=== PATIENT | female | born 1995 | race Caucasian/White ===

== ENCOUNTER 2019-03-10 14:10 | Emergency (ER) | payer MEDICAID, SELFPAY ==
[2019-03-10 14:42] VITALS: BP 117/77; PULSE 111; RESP 16; TEMP 37; O2SAT 100
--- NOTE | 2019-03-10 15:47 | W.ED.GENAD ---
Discharge Plan Disposition Patient Disposition: HOME Condition: Good Discharge Details Chief Complaint: EyeProblem Clinical Impression: Conjunctivitis, Congestion of nasal sinus Primary Care Provider: Agus Hylton ED Provider: Vinny Berg Home Meds and New Rx's Prescriptions: New loratadine 10 mg capsule 10 mg PO DAILY Qty: 14 RF: 0 fluticasone propionate [Flonase Allergy Relief] 50 mcg/actuation spray,suspension 1 spray MACKENZIE BID Qty: 9.9 RF: 0 oxymetazoline [Afrin (oxymetazoline)] 0.05 % spray,non-aerosol 1 spray MACKENZIE ONCE Qty: 15 RF: 0 No Action spironolactone 50 mg tablet 100 mg PO DAILY RF: 0 prochlorperazine maleate 5 mg tablet 5 mg PO Q8H PRN (Reason: headache and nausea) Qty: 30 RF: 12 albuterol sulfate 8.5 GM HFA aerosol inhaler 2 puff Inhalation Q4H PRN Qty: 1 RF: 2 tretinoin [Retin-A] 45 GM cream 1 shannon Topical HS Qty: 45 RF: 3 fexofenadine [Juhi Allergy] 180 MG tablet 180 mg PO DAILY Qty: 30 RF: 0 Flovent HFA 10.6 GM HFA aerosol inhaler 2 puff Inhalation BID Qty: 1 RF: 0 topiramate [Topamax] 50 MG tablet 50 mg PO HS Qty: 90 RF: 3 Hold Instructions: Home Medication placed on hold at Doctor's office Nexplanon 68 MG implant 68 mg SQ ONCE Qty: 1 RF: 0 Discharge Instructions Instructions: Conjunctivitis (ED) Additional Instructions: At this time you have both conjunctivitis and mild rhinosinusitis. Please continue taking your Cipro drops as directed. If you do not notice improvement after 5 days please contact us we can call you in a different eye antibiotic. However I suspect that the Cipro will take care of the problem well. Please take the loratadine every day to help with the congestion, please use the Flonase spray 1 spray in each nostril twice daily. Please use the Afrin only as needed. Please drink 10 to 12 cups of water per day. If you notice any worsening of your symptoms, or any new symptoms such as vomiting, diarrhea, fever, chills, shortness of breath, chest pain, numbness, weakness, or fainting , please return immediately to the emergency department for reevaluation. Please follow up with your primary care provider as soon as possible for reassessment and reevaluation. As always, it was a pleasure participating in your medical care today. Referrals: Agus Hylton [Primary Care Provider] - Medical Decision Making This is a pleasant 23-year-old female who presents for evaluation of irritated eyes, nasal pressure sinus pressure, and ear pressure. 3 days ago she was started on Cipro drops for her eyes, which have been improving ever since. Ears demonstrate no evidence of infection, but she does have mild serous fluid. Minimal maxillary sinus congestion on percussion. Symptoms have been less than a week, and appear inconsistent with chronic sinusitis requiring antibiotics. At this time we will recommend steroid nasal spray, Afrin only as needed, loratadine and continuation of her Cipro drops. We discussed red flags which to return. At time of dispel auscultated heart rate on exam was 88. HPI General Date/Time Provider Initiated Documentation: 03/10/19 14:39. HPI Narrative: Is a 23-year-old female who presents today for evaluation of nasal congestion, ear pressure, and conjunctivitis-like symptoms. 3 days ago she was prescribed Cipro drops for her eye secondary to conjunctivitis in the right eye. It is now spread to the left but she states that it is improving with the drops. She is not a contact lens wear. Over the last 2 to 3 days she is also noted pressure in her ears, notable nasal congestion. She denies fever or chills. She does have a mild nonproductive cough which she feels is postnasal drip. She denies chest pain shortness of breath numbness tingling or weakness. No other complaints at this time. No other modifying factors. Of note initial heart rate was 111 however on evaluation now her heart rate is 80. Related Data Home Medications Medication Instructions Recorded Confirmed albuterol sulfate 2 puff INHALATION Q4H PRN #1 09/16/13 03/10/19 inhaler tretinoin [Retin-A] 1 shannon TOPICAL HS #45 gm 11/06/13 03/10/19 Flovent HFA 2 puff INHALATION BID #1 inhaler 08/25/14 03/10/19 fexofenadine [Juhi Allergy] 180 mg PO DAILY #30 tab-cap 08/25/14 03/10/19 topiramate [Topamax] 50 mg PO HS #90 tab-cap 04/04/17 03/10/19 etonogestrel [Nexplanon] 68 mg SQ ONCE #1 implant 09/14/17 03/10/19 prochlorperazine maleate 5 mg 5 mg PO Q8H PRN #30 tab-cap 07/23/18 03/10/19 tablet spironolactone 50 mg tablet 100 mg PO DAILY 07/23/18 03/10/19 fluticasone propionate [Flonase 1 spray MACKENZIE BID #9.9 ml 03/10/19 Allergy Relief] loratadine 10 mg PO DAILY #14 cap 03/10/19 oxymetazoline [Afrin 1 spray MACKENZIE ONCE #15 ml 03/10/19 (oxymetazoline)] Previous Rx's Medication Instructions Recorded topiramate [Topamax] 50 mg PO HS #90 tab-cap 04/04/17 prochlorperazine maleate 5 mg 5 mg PO Q8H PRN #30 tab-cap 07/23/18 tablet fluticasone propionate [Flonase 1 spray MACKENZIE BID #9.9 ml 03/10/19 Allergy Relief] loratadine 10 mg PO DAILY #14 cap 03/10/19 oxymetazoline [Afrin 1 spray MACKENZIE ONCE #15 ml 03/10/19 (oxymetazoline)] Allergies Allergy/AdvReac Type Severity Reaction Status Date / Time azithromycin [From Zithromax] Allergy Intermediate HIVES Unverified 03/10/19 14:48 General Stated Complaint: EyeProblem ROULA: 4 Review of Systems All systems reviewed & are unremarkable except as noted in HPI and below PFSH Social History Smoking/Tobacco Use Status: Never Alcohol Intake: current Alcohol Intake frequency: a few times a month Drug use: Never Substance use type: does not use Household members: family Education Level: college current occupation: STUDENT Do you feel safe at home: Yes Do you feel safe in your relationship?: Yes Exam Narrative Exam Narrative: 1.Const: Well-nourished, Well-developed, appearing stated age 2.Eyes: PERRL, mild conjunctival injection bilaterally. Mild clear drainage. No edema or signs of periorbital orbital cellulitis. No pain with movement of eyes. 3.ENT: Atraumatic external nose and ears. Moist MM. Neck: Symmetric, trachea midline, No thyromegaly. Minimal clear serous fluid behind the tympanic membranes bilaterally, no purulent fluid, no significant bulging, no evidence of infectious otitis media. No rupture. No tenderness on percussion of frontal sinuses. Minimal tenderness on percussion of maxillary sinuses. Nose is unremarkable on exam, posterior oropharynx is normal. Patient demonstrates good movement of cervical neck. There is no nuchal rigidity, no nuchal tenderness. Patient is able to flex the neck without any difficulty or significant pain. Negative Kernig's and Brudzinski sign. 4.CVS: +S1/S2, No murmurs or gallops. Peripheral pulses 2+ and equal in all extremities. Brisk capillary refill in all extremities. 5.RESP: Unlabored respiratory effort. Clear to auscultation bilaterally. No wheezes rales or rhonchi 6.GI: Soft, Nontender/Nondistended, No hepatosplenomegaly. No guarding or rebound. 7.MSK: Normocephalic/Atraumatic, Extremities w/o deformity or ttp No cyanosis or clubbing, Normal movement of all extremities 8.Skin: Warm, Dry. No rashes or lesions. 9.Neuro: research investigator II-XII grossly intact. Sensation grossly intact, no focal neurologic deficits. 10.Psych: (AAO) x3. Appropriate mood and affect Course Vital Signs Vital signs: Vital Signs Temperature 37.0 C 03/10/19 14:42 Pulse 111 H 03/10/19 14:42 Respiratory Rate 16 03/10/19 14:42 Blood Pressure 117/77 03/10/19 14:42 Pulse Oximetry 100 03/10/19 14:42 Temperature 37.0 C 03/10/19 14:42 Temperature Source Temporal Artery Scan 03/10/19 14:42 Pulse 111 H 03/10/19 14:42 Respiratory Rate 16 03/10/19 14:42 Respiratory Effort Non-Labored 03/10/19 14:50 Blood Pressure 117/77 03/10/19 14:42 Blood Pressure Position Sitting 03/10/19 14:42 Pulse Oximetry 100 12/23/19 14:42 Oxygen Delivery Method Room Air 03/10/19 14:42 Oxygen Flow Rate 0 03/10/19 14:42 Pain Level 8 03/10/19 14:42
== END 2019-03-10 15:57 | disposition home or self-care (01) ==
PROVIDERS: Emergency Provider Student in an Organized Health Care Education/Training Program; PCP Nurse Practitioner Family
DX: H10.33 Unspecified acute conjunctivitis, bilateral (principal); R09.81 Nasal congestion
CPT/HCPCS: 99283

== ENCOUNTER 2020-10-13 13:17 | Emergency (ER) | payer MEDICAID, SELFPAY ==
[2020-10-13 13:21] VITALS: BP 117/89; PULSE 98; RESP 16; TEMP 36.8; O2SAT 100
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
[2020-10-13 14:29] VITALS: BP 109/81; PULSE 86; TEMP 36.7; O2SAT 99
== END 2020-10-13 14:29 | disposition home or self-care (01) ==
PROVIDERS: Emergency Provider Physician Assistant; PCP Nurse Practitioner Family
DX: S00.83XA Contusion of other part of head, initial encounter (principal); W22.8XXA Striking against or struck by other objects, initial encounter
CPT/HCPCS: 99282

== ENCOUNTER 2021-03-07 15:29 | Outpatient (REF) | payer MEDICAID, SELFPAY | END 2021-03-07 15:30 | disposition home or self-care (01) | LOC: NCHCN 15:29 | PROVIDERS: PCP Nurse Practitioner Family; Visit Provider Nurse Practitioner Family | DX: R30.0 Dysuria (principal) | CPT/HCPCS: 87077; 87086; 87186 ==

== ENCOUNTER 2023-11-30 01:15 | Outpatient (CLI) | payer BC, SELFPAY ==
[2023-11-30 10:16] LABS: Abs Immature Grans 0.04 10^3/uL (0.0-0.06); Absolute Basophil Count 0.03 10^3/uL (0.0-0.2); Absolute Eosinophil Count 0.18 10^3/uL (0.0-0.7); Absolute Lymphocyte Count 1.67 10^3/uL (1.2-3.4); Absolute Monocyte Count 0.43 10^3/uL (0.1-0.8); Absolute Neutrophil Count 6.35 10^3/uL (1.2-6.7); Basophils % 0.3 %; Eosinophils % 2.1 %; HCT 42.2 % (36.0-46.0); HGB 14.2 g/dL (11.2-15.7); Immature Grans % 0.5 %; Lymphocytes % 19.2 %; MCH 29.7 pg (27.0-33.0); MCHC 33.6 % (32.0-36.0); MCV 88 fL (80-95); MPV 9.6 fL (8.0-11.0); Monocytes % 4.9 %; Platelet Count 219 10^3/uL (130-400); RBC 4.78 10^6/uL (3.93-5.22); RDW 12.6 % (11.7-14.6); RDW-SD 41.1 fL
[2023-11-30 10:18] LABS: Panorama Kit Sent via Fed Ex
[2023-12-01 10:54] LABS: HIV-1/2 Ag & Ab Screen Negative (Negative)
[2023-12-03 09:59] LABS: Hepatitis B Surface Ag Negative (Negative)
[2023-12-03 10:14] LABS: Hepatitis C Ab w Rflx HCV PCR Negative (Negative)
[2023-12-03 11:39] LABS: Varicella IgG Antibody Positive (See Note)
[2023-12-03 11:44] LABS: Rubella IgG Ab (UVM) Positive (See Note)
[2023-12-03 21:28] LABS: Specimen WB Whole Blood
[2023-12-03 22:31] LABS: Syphilis IgG w/Reflex Nonreactive (Nonreactive)
[2023-12-11 18:27] LABS: Result Summary NEGATIVE; Specimen WB Whole Blood
== END 2023-11-30 01:16 | disposition home or self-care (01) ==
LOC: LBO 01:15
PROVIDERS: PCP Nurse Practitioner Family; Visit Provider Advanced Practice Midwife
DX: Z34.91 Encounter for supervision of normal pregnancy, unspecified, first trimester (principal); Z3A.10 10 weeks gestation of pregnancy
CPT/HCPCS: 36415; 81220; 81222; 81329; 86787; 86803; 86850; 86900; 86901; 87340; 87389; 85025; 86762; 86780

== ENCOUNTER 2023-11-30 09:34 | Outpatient (REF) | payer BC, SELFPAY ==
--- NOTE | 2023-11-30 09:30 | PAPFT_PTH ---
PATIENT: Drew Lincoln LOC: [facility] U#:[id number] AGE/SX: 28/F ROOM: RE11/30/[address]: Savita Givens : 1995 BED: DIS: 11/30/2023 SPEC #: [id number] RECD: 11/30/23 12:36 STATUS: VINH RERiky #: [id number] BRYCE: 11/30/23 09:[address]: Savita Givens DEPT: [facility] Cytology RECD BY: Cindy Best ENTERED: 11/30/23 12:36 SP TYPE: PAPFT LAURIE DR: Callum Shelton DNP Tissues: 1 - CX/ENDOCX FOR PAP SMEARS Procedures: PAP THIN PREP/UVM Screening Comments: [id number]
[2023-12-03 12:42] LABS: Chlamydia Result Negative (Negative); GC Result Negative (Negative)
== END 2023-11-30 09:35 | disposition home or self-care (01) ==
LOC: LBN 09:34
PROVIDERS: PCP Nurse Practitioner Family; Visit Provider Advanced Practice Midwife
DX: Z3A.01 Less than 8 weeks gestation of pregnancy (principal); Z34.01 Encounter for supervision of normal first pregnancy, first trimester; Z36.9 Encounter for antenatal screening, unspecified
CPT/HCPCS: 87491; 87591; 88142; 87086

== ENCOUNTER 2024-03-26 04:17 | Outpatient (CLI) | payer MEDICAID, SELFPAY ==
[2024-03-26 08:21] LABS: HGB 12.7 g/dL (11.2-15.7); MCH 29.9 pg (27.0-33.0); MCHC 33.4 % (32.0-36.0); MCV 89 fL (80-95); MPV 9.3 fL (8.0-11.0); Platelet Count 175 10^3/uL (130-400); RBC 4.25 10^6/uL (3.93-5.22); RDW 12.6 % (11.7-14.6); RDW-SD 41.1 fL
[2024-03-26 08:38] LABS: Glucose,1 Hr (Glucola) 147 mg/dL (80-140)
== END 2024-03-26 04:18 | disposition home or self-care (01) ==
PROVIDERS: PCP Nurse Practitioner Family; Visit Provider Advanced Practice Midwife
DX: O26.892 Other specified pregnancy related conditions, second trimester (principal); Z67.91 Unspecified blood type, Rh negative; Z34.92 Encounter for supervision of normal pregnancy, unspecified, second trimester
CPT/HCPCS: 36415; 82950; 85027; 86850; 90384

== ENCOUNTER 2024-04-03 01:08 | Outpatient (CLI) | payer MEDICAID, SELFPAY ==
[2024-04-03 09:22] LABS: Glucose 1 Hour 148 mg/dL
[2024-04-03 11:23] LABS: Glucose 3 Hour 106 mg/dL
== END 2024-04-03 01:09 | disposition home or self-care (01) ==
LOC: LBO 01:08
PROVIDERS: Advanced Practice Midwife; PCP Nurse Practitioner Family; Visit Provider Advanced Practice Midwife
DX: R73.09 Other abnormal glucose (principal)
CPT/HCPCS: 36415; 82951

== ENCOUNTER 2024-04-08 01:43 | Outpatient (CLI) | payer MEDICAID, SELFPAY ==
--- NOTE | 2024-04-08 06:30 | DI.US_ITS ---
Exam(s) US LOWER EXTREMITY VENOUS RT EXAM: US LOWER EXTREMITY VENOUS RT CLINICAL HISTORY: Varicose Vein right leg, hot to touch,? DVT,i83.10 TECHNIQUE: Grayscale, color, and doppler imaging of the deep venous system of the right lower extrem ity was performed. COMPARISON: US US OB 2-3 TRIMESTER from 01/29/2024 FINDINGS: There is no evidence of intraluminal thrombus and there is normal compression and augmentation demons trated within the common femoral vein, femoral vein, and popliteal vein. In the ipsilateral calf the interrogated veins also exhibit normal compression/ augmentation properti es. The ipsilateral saphenofemoral junction is patent. IMPRESSION: 1. No evidence of DVT in the right lower extremity. DATA REPOSITORY:
== END 2024-04-08 02:03 ==
LOC: DI 01:43
PROVIDERS: PCP Nurse Practitioner Family; Visit Provider Advanced Practice Midwife
DX: I83.11 Varicose veins of right lower extremity with inflammation (principal)
CPT/HCPCS: 93971

== ENCOUNTER 2024-05-23 11:18 | Outpatient (CLI) | payer MEDICAID, SELFPAY ==
[2024-05-23 11:55] VITALS: BP 130/92; PULSE 78; TEMP 36.5
[2024-05-23 12:56] LABS: HCT 39.4 % (36.0-46.0); HGB 13.1 g/dL (11.2-15.7); MCH 29.6 pg (27.0-33.0); MCHC 33.2 % (32.0-36.0); MCV 89 fL (80-95); MPV 9.8 fL (8.0-11.0); Platelet Count 158 10^3/uL (130-400); RBC 4.42 10^6/uL (3.93-5.22); RDW 13.2 % (11.7-14.6); RDW-SD 43.3 fL; WBC 9.24 10^3/uL (4.4-10.8)
[2024-05-23 13:04] LABS: COMMENT (LAB VIEW ONLY) 14.08 mg/dL; PROTEIN < 6.0 mg/dL
[2024-05-23 13:10] LABS: ALT 24 U/L (14-59); AST 15 U/L (15-37); Albumin 2.5 g/dL (3.4-5.0); Alkaline Phosphatase 233 U/L (46-116); Anion Gap 11.7 mmol/L (3-11); BUN 8 mg/dL (7-18); Bilirubin, Total 1.2 mg/dL (0.2-1.0); CO2 22.3 mmol/L (21.0-32.0); CREATININE 0.5 mg/dL (0.55-1.02); Calcium 9.2 mg/dL (8.5-10.1); Chloride 107 mmol/L (98-107); Estimated GFR 131.75 (mL/min/1.73m2); Glucose 74 mg/dL (74-106); Potassium 3.8 mmol/L (3.5-5.1); Sodium 141 mmol/L (136-145); Total Protein 6.3 g/dL (6.4-8.2); Uric Acid 4.5 mg/dL (2.6-6.0)
--- NOTE | 2024-05-23 15:08 | W.OBNST ---
Date of service: 05/23/24 Time of Service: 15:08 NST Evaluation Reason for NST Reasons for Nonstress Test: GESTATIONAL HYPERTENSION Gestational Age Gestational Age in Weeks and Days: 35 Weeks and 5Days Test and Monitor Explained Test/Monitor Explained: Test Explained, Monitor Explained and Patient Verbalized Understanding Vital Signs Blood Pressure: 130/92 Pulse: 78 Temperature: 97.7 F NST Information Time on Monitor: 11:55 Date off Monitor: 05/23/24 Time off Monitor: 12:24 NST Interventions: PO Hydration NST Evaluation Patient States Movement: Present FHR Baseline: 130 Variability: Moderate 6-25 bpm Accelerations: 15x15 Decelerations: None NST Results: Reactive Note Ultrasound Done: N/A. NST Note Note: Drew experienced an ocular migraine while at work today at her [employer]. Her symptoms resolved with tylenol. She experienced some numbness in left hand and fingers which lasted approximately 30 minutes. Repeat BP was 130/77. No edema or headache at encounter. preeclampsia labs WNL and urine protein neg. RTO in 5 days. Precautions reviewed. NST Reviewed and Verified by: Savita Givens
[2024-05-23 15:09] VITALS: BP 130/92; PULSE 78; TEMP 36.5
== END 2024-05-23 12:47 | disposition other institution (70) ==
LOC: BCD 11:23 → OBS 11:54
PROVIDERS: PCP Nurse Practitioner Family; Visit Provider Advanced Practice Midwife
DX: O16.3 Unspecified maternal hypertension, third trimester (principal); Z3A.35 35 weeks gestation of pregnancy
CPT/HCPCS: 59025; 36415; 80053; 85027; 82565; 84156; 84550

== ENCOUNTER 2024-05-27 16:30 | Outpatient (REF) | payer MEDICAID, SELFPAY | END 2024-05-27 16:31 | disposition home or self-care (01) | LOC: LBN 16:30 | PROVIDERS: PCP Nurse Practitioner Family; Visit Provider Advanced Practice Midwife | DX: Z34.93 Encounter for supervision of normal pregnancy, unspecified, third trimester (principal); Z3A.36 36 weeks gestation of pregnancy | CPT/HCPCS: 87081 ==

== ENCOUNTER 2024-06-12 15:56 | Outpatient (CLI) | payer MEDICAID, SELFPAY ==
[2024-06-12 16:04] VITALS: BP 128/86; PULSE 89
[2024-06-12 16:10] VITALS: BP 128/86; PULSE 89; TEMP 36.8
[2024-06-12 16:38] VITALS: BP 119/87; PULSE 96
[2024-06-12 16:41] LABS: HCT 40.4 % (36.0-46.0); HGB 13.4 g/dL (11.2-15.7); MCH 29.5 pg (27.0-33.0); MCHC 33.2 % (32.0-36.0); MCV 89 fL (80-95); MPV 10.3 fL (8.0-11.0); Platelet Count 166 10^3/uL (130-400); RBC 4.55 10^6/uL (3.93-5.22); RDW 13.6 % (11.7-14.6); RDW-SD 43.8 fL; WBC 9.57 10^3/uL (4.4-10.8)
[2024-06-12 16:43] VITALS: BP 128/86; PULSE 88
[2024-06-12 16:57] LABS: COMMENT (LAB VIEW ONLY) 150.11 mg/dL; PROTEIN 33.6 mg/dL; Prot/Crea Ur Ratio 0.22
--- NOTE | 2024-06-12 17:02 | W.OBNST ---
Date of service: 06/12/24 Time of Service: 17:02 NST Evaluation Reason for NST Reasons for Nonstress Test: OTHER, SEE COMMENT Reason for NST Other: Elevated BP in office Gestational Age Gestational Age in Weeks and Days: 38 Weeks and 4Days Test and Monitor Explained Test/Monitor Explained: Test Explained, Monitor Explained and Patient Verbalized Understanding Vital Signs Blood Pressure: 128/86 Pulse: 89 Temperature: 98.2 F Urine Results Urine Protein: Positive Urine Ketones: Negative Urine Glucose: Negative Urine Blood: Negative NST Information Time on Monitor: 15:57 Date off Monitor: 06/12/24 Time off Monitor: 16:47 NST Interventions: PO Hydration and Notify Provider Contraction Frequency: Irregular NST Evaluation Patient States Movement: Present FHR Baseline: 145 Variability: Moderate 6-25 bpm Accelerations: 15x15 Decelerations: None NST Results: Reactive Note Ultrasound Done: CHRISTAL (gestational HTN) Indication: Other Largest Vertical Pocket: 7 Total CHRISTAL: 19.4 Coding for CHRISTAL w/NST: Completed Exam. NST Note Note: Shay is a at 38w4d who presents for an NST and BP monitoring after an elevated BP in clinic today (143/95). She had one other elevated BP in on 05/23/24 when BP was 130/90, normal labs and undetectable P:C. Today her P:C is 0.22, CHRISTAL is normal at 19.4cm and CBC is normal. CMP is WNL. Discussed diagnosis of gestational hypertension with recommendation for IOL today. Patient requets discharge to home and to return at 0700 for IOL. Reviewed risks of maternal and complications with increase in risk due to worsening of gestational hypertension to preeclampsia or eclampsia. Reviewed warning signs and symptoms to report to staff. After risk benefits discussion with patient and partner Dez patient verbalizes understanding and desire to discharge home to return in the morning. MD aware of plan. NST Reviewed and Verified by: Latha Pandey [employer] OB Exam DATE OF EXAM:: 06/12/24 TIME OF EXAM:: 17:03 PROVIDER THAT PERFORMED THE STUDY: Latha Pandey IS THIS A REPEAT EXAM DURING THIS ENCOUNTER: No Type of Exam: Pelvic OB Trans Abdominal REASON FOR EXAM: other indication: CHRISTAL Exam Complete. DIFFERENTAL DIAGNOSES: oligohydramnios. CHRISTAL 19.4cm, vertex BRUNILDA
[2024-06-12 17:03] VITALS: BP 128/86; PULSE 89; TEMP 36.8
[2024-06-12 17:05] LABS: ALT 24 U/L (14-59); AST 15 U/L (15-37); Albumin 2.4 g/dL (3.4-5.0); Alkaline Phosphatase 256 U/L (46-116); Anion Gap 9.8 mmol/L (3-11); BUN 8 mg/dL (7-18); CO2 23.2 mmol/L (21.0-32.0); CREATININE 0.6 mg/dL (0.55-1.02); Calcium 8.6 mg/dL (8.5-10.1); Chloride 106 mmol/L (98-107); Estimated GFR 126.09 (mL/min/1.73m2); Glucose 120 mg/dL (74-106); Potassium 3.8 mmol/L (3.5-5.1); Sodium 139 mmol/L (136-145); Total Protein 6.2 g/dL (6.4-8.2)
== END 2024-06-12 18:41 ==
LOC: BCD 16:01 → OBS 16:03
PROVIDERS: PCP Nurse Practitioner Family; Visit Provider Advanced Practice Midwife
DX: R03.0 Elevated blood-pressure reading, without diagnosis of hypertension (principal); O26.893 Other specified pregnancy related conditions, third trimester; Z3A.38 38 weeks gestation of pregnancy
CPT/HCPCS: 36415; 80053; 85027; 59025; 82565; 84156

== ENCOUNTER 2024-06-13 07:36 | Inpatient (IN) | payer MEDICAID, SELFPAY ==
[2024-06-13] VITALS (20 sets, daily range): BP systolic 116–140; BP diastolic 78–91; PULSE 80–115; RESP 16; TEMP 36.4–36.6; O2SAT 98
[2024-06-13] MEDS: miSOPROStol 25 MCG TAB 50 MCG PO ×3 (09:10→17:15)
[2024-06-13 09:54] LABS: HGB 13.3 g/dL (11.2-15.7); MCH 29.6 pg (27.0-33.0); MCHC 33.3 % (32.0-36.0); MCV 89 fL (80-95); MPV 10.3 fL (8.0-11.0); Platelet Count 154 10^3/uL (130-400); RDW 13.7 % (11.7-14.6); RDW-SD 44.1 fL; WBC 9.98 10^3/uL (4.4-10.8)
--- NOTE | 2024-06-13 09:56 | W.OBNST ---
Date of service: 06/13/24 Time of Service: 09:56 NST Evaluation Reason for NST Reasons for Nonstress Test: GESTATIONAL HYPERTENSION Reason for NST Other: Induction of Labor Gestational Age Gestational Age in Weeks and Days: 38 Weeks and 5Days Test and Monitor Explained Test/Monitor Explained: Test Explained, Monitor Explained and Patient Verbalized Understanding Vital Signs Blood Pressure: 127/91 Pulse: 107 Temperature: 97.5 F Urine Results Urine Protein: Positive Urine Ketones: Negative Urine Glucose: Negative Urine Blood: Negative NST Information Date on Monitor: 06/13/24 Time on Monitor: 07:41 Date off Monitor: 06/13/24 Time off Monitor: 08:12 Total Time on Monitor: 31 NST Interventions: PO Hydration Contraction Frequency: Irregular NST Evaluation Patient States Movement: Present FHR Baseline: 145 Variability: Moderate 6-25 bpm Accelerations: 15x15 Decelerations: None NST Results: Reactive Note Ultrasound Done: N/A. NST Note Note: Drew is here for IOL due to gestational hypertension. Reviewed cervical ripening methods and will prceed with ripening with misoprostol. NST Reviewed and Verified by: Savita Givens
--- NOTE | 2024-06-13 09:57 | W.PM.OBHPL1 ---
Date of service: 06/13/24 Time of Service: 09:57 Assessment and Plan Assessment and plan (1) Encounter for induction of labor: Status: Acute Assessment and plan: Reviewed cervical ripening methods and will proceed with ripening with oral misoprostol. Kapil consider cervical ripening balloon when cervix is more favorable. Anticipate . Comfort measures discussed. (2) Gestational hypertension: Status: Acute Assessment and plan: Review of BP prior to indicates diagnosis of stage 1 hypertension. Recommendation as well as risks and benefits of induction explained to Drew and she wishes to proceed with induction of labor today. OB-HPI Labor/Delivery History of Present Illness Reason for Visit: Induction of Labor Chief Complaint: Scheduled Induction of Labor Indication for Induction: Gestational Hypertension. PATRICIA Calculator Estimated Delivery Date Method Current WG Current Estimate 06/22/24 LMP (Certain) 38w 5d Other Estimates 06/19/24 Ultrasound #1 39w 1d Comments: Drew had an elevated BP at the office yesterday. Preeclampsia labs WNL. Risks and benefits of induction of labor were explained to Drew yesterday and She and her partner, Dez agree to IOL today. History of Present Expected Delivery Route/Plan - CNM FOB/claudia - Dez Donna (has 2 children ages 8 & 10, healthy) Waiting for to learn gender, if male will circ No set plan, would like to avoid epidural GBS negative Specific Issues/Plan 1. Migraine with aura- magnesium recommended daily 2. Constipation- colace escribed PRN BID 3. History of anxiety and depression-Vitamin D suggested daily 4. Rh neg, RhoGam @ 28 wks 03/26/24 5. cfDNA; low risk x5, gender not reported. neg, SMA - neg 6. Takes amytriptiline 10 mg hs for Interstitial cystitis and UTI prevention 7. 27 wk [id number], 3 hr GTT -81, 148, 126, 106 8. Phlebitis R lower varicose vein (right calf), US 04/07 is negative for DVT PFSH All Active Problems (Updated 06/13/24 @ 10:00 by Savita Givens CNM) Gestational hypertension (Acute) Encounter for induction of labor (Acute) (Acute) Varicose veins during , antepartum (Acute) right upper inner calf Rh negative status during (Acute) Depression (Chronic) Anxiety (Chronic) Asthma (Chronic) Rosacea (Acute) Interstitial cystitis (Acute) Seasonal allergies (Acute) Migraine with aura (Acute 08/25/14) Eczema (Acute 11/06/12) Facial contusion (Acute) Head injury (Acute) Medical History (Updated 06/13/24 @ 10:00 by Savita Givens CNM) Elevated glucose Varicose vein of lower extremity with phlebitis History of frequent urinary tract infections Chronic idiopathic urticaria (12/24/13) Encounter for removal and reinsertion of Nexplanon BCP ( control pills) initiation Recurrent tonsillitis (12/11/13) Irregular periods (09/28/11) Hx of tonsillitis Acne (11/07/11) Head injury Migraine has neuro eval 09/2014 Multiple allergies sees asphalt coater. Surgical History Tonsillectomy (02/09/14) Myringotomy w/ PE (pressure equalizing) tubes Family History (Updated 11/30/23 @ 08:47 by Savita Givens CNM) Mother Hypertensive disorder, systemic arterial off meds now Migraines Hypertension Sister Migraines Father Alcohol use disorder Maternal Grandmother Personal history of malignant neoplasm skin Bipolar disorder current episode depressed Maternal Grandfather Hypertensive disorder, systemic arterial Heart disease bypass Social History (Updated 09/14/23 @ 13:00 by Anne-Marie Ball) Smoking/Tobacco Use Status: Never Second Hand Exposure: Yes Smoking risk assessment performed?: Yes Alcohol Intake: former Drug use: Never Substance use type: does not use Caregiver/Support person: No Household members: significant other Housing: house Communication Needs: None Education Level: college Do you need help understanding health information?: Never Pets and animals: Yes Pets and animals: dog(s) Sexually active: Yes Do you think of yourself as: straight/heterosexual Current gender identity: female What is your relationship status?: living with partner How often do you talk on the phone with friends or family?: three or more times per week How often do you get together with friends or relatives?: three or more times per week How often do you attend mu-ism or restorationist services?: decline to answer Do you belong to any clubs or organized social groups?: no Panel score (0-1 are the most socially isolated patients): 2 What type of physical activity do you participate in: walking Duration: 15-30 minutes/day Frequency: daily Rayna/Hindu: None Special rayna needs: No Seatbelt use: always Drive intox or ride w/intox pharmacy delivery driver: No Do you feel safe at home: Yes Do you feel safe in your relationship?: Yes Female Reproductive History Menstrual control method: implanted History History 1 Para 0 Hx # Term Pregnancies 0 Multiple births 0 Hx # Pregnancies 0 Ectopic pregnancies 0 AB induced 0 Hx Number of Living Children 0 AB spontaneous 0 Meds Allergies and Home Medications Allergies Allergy/AdvReac Type Severity Reaction Status Date / Time azithromycin (From Zithromax) Allergy Intermediate HIVES Unverified 06/13/24 09:58 Home Medications ?Medication ?Instructions ?Recorded ?Confirmed ?Type albuterol sulfate 90 mcg/actuation 2 puff inhalation Q4H PRN ##1 09/11/22 06/12/24 Rx aerosol inhaler amitriptyline 10 mg tablet 10 mg PO QHS #90 tabs 09/14/23 06/12/24 Rx cetirizine 10 mg capsule (Zyrtec) 10 mg PO DAILY PRN 09/14/23 06/12/24 History fluticasone propionate 44 2 puff inhalation BID PRN ##1 11/14/23 06/12/24 History mcg/actuation HFA aerosol inhaler (Flovent HFA) docusate sodium 100 mg capsule 100 mg PO BID #60 caps 11/30/23 06/12/24 Rx (Colace) nature made PO 01/02/24 06/12/24 History Exam Physical Exam Vital signs: Temp Pulse Resp BP Pulse Ox 97.5 F L 83 16 118/84 98 06/13/24 07:42 06/13/24 09:45 06/13/24 07:42 06/13/24 09:45 06/13/24 07:42 Vital Signs Reviewed: Yes Constitutional Constitutional: no acute distress Detailed Labor and Delivery Exam station: -1 Cervix position: mid Consistency: soft Biggs Score: Cervical Points Exam 0 1 2 3 Dilation Closed 1-2cm 3-4 cm 5-6cm Effacement 0-30% 40-50% 60-70% 80% Consistency Firm Medium Soft Station -3 -2 -1,0 +1,+2 Position Posterior Mid Anterior BIGGS Score(Cervical Ripeness Score): 5 Amniotic Membrane Status: Intact Monitor Mode: External Contraction Frequency(min): irregular Contraction Intensity: Mild Comments: painless irritability noted Fetus A Heart Rate Baseline: 140 Monitor Accelerations: 15 X 15 Monitor Decelerations: None Variability: Moderate (6-25 BPM) Presentation: Cephalic Categories: Category I Respiratory Exam Respiratory Exam: Normal Cardiovascular Exam Cardiovascular Exam: Normal Abdominal Exam Abdominal Exam: Normal Exam Exam: Normal Extremities Exam Extremities Exam: Normal Skin Exam Skin Exam: Normal Psychiatric Exam Psychiatric Exam: Normal Results Results Group Beta Strep: Negative Blood Type: O- Rubella Status: Immune Varicella Immunity: Immune Risk Assessment Risk for Shoulder Dystocia Historical/Initial OB: NEGATIVE FOR: Pelvic Abnormality, Pre- BMI>30, Previous Shoulder Dystocia or Previous Macrosomia 36 Weeks: NEGATIVE FOR: Current Gestational DM, EFW>4500gms or Maternal Weight Gain>40lbs 40 Weeks: NEGATIVE FOR: EFW> 4500 gms, Maternal Weight Gain >40lb or Post Dates Increased Risk?: No Delivery Plan @ 36wks: Risk for Pre-Eclampsia Daily Dose ASA Indicated: No Yes, if one or more: NEGATIVE FOR: Hx Pre-E/Gest HTN, Chronic HTN, Multiple Gestation, Pre-gestational DM, Renal Disease, Systemic Lupus or APA Syndrome Yes, if 2 or more: POSITIVE FOR: Nulliparity; NEGATIVE FOR: Age>= 35 yrs, >10yr btwn pregnancies, BMI>30, ethinicty, Mother/Sister w/ Pre-E or Previous IUGR Risk for Post- Hemorrhage Initial: NEGATIVE FOR: Multiple Gestation, Previous PPH, Known Clotting Deficiency, Grand Multiparity or Anticoagulation 36 Weeks: NEGATIVE FOR: Anemia, hgb<10, Low platelets(thrombocytopenia), Gestational HTN or Pre-E, Polyhydraminios or EFW>4500gms 40 Weeks: NEGATIVE FOR: Anemia, hgb<10, Low platelets (thrombocytopenia), Gestation HTN or Pre-E, Polyhydraminios or EFW>4500gms At Risk?: Yes (Induction) Counseled re: Active Management: Yes Risks Reviewed Risks Reviewed Upon Admission: Yes
[2024-06-13 10:09] LABS: PROTEIN 12.1 mg/dL; Prot/Crea Ur Ratio 0.11
[2024-06-13 10:11] LABS: ALT 19 U/L (14-59); AST 16 U/L (15-37); Albumin 2.4 g/dL (3.4-5.0); Alkaline Phosphatase 259 U/L (46-116); Anion Gap 11.5 mmol/L (3-11); BUN 9 mg/dL (7-18); Bilirubin, Total 1.2 mg/dL (0.2-1.0); CO2 22.5 mmol/L (21.0-32.0); CREATININE 0.6 mg/dL (0.55-1.02); Chloride 106 mmol/L (98-107); Estimated GFR 126.09 (mL/min/1.73m2); Glucose 105 mg/dL (74-106); Potassium 3.9 mmol/L (3.5-5.1); Sodium 140 mmol/L (136-145); Total Protein 6.2 g/dL (6.4-8.2)
--- NOTE | 2024-06-13 17:21 | W.PM.OBNL1 ---
Date of service: 06/13/24 Time of Service: 17:21 Pelvic Exam Effacement (%): 50 station: 0 Cervix Position: posterior Consistency: soft Vaginal Exam Presentation: Cephalic Comments: unable to reach cervical os. Contractions Monitor Mode: External Contraction Frequency(min): every 3 min Contraction Duration(sec): 40-50 Intensity: Mild Fetus A Monitor: External (US) Heart Rate Baseline: 140 Presentation: Cephalic Variability: Moderate (6-25 BPM) Categories: Category I FHR Rhythm: Regular Accelerations: 15 X 15 Decelerations: None Assessment and Plan Assessment and plan (1) Encounter for induction of labor: Status: Acute Assessment and plan: Will continue misoprostol administration every 4 hours and anticipate . Objective Abnormal lab results 06/13/24 Range/Units 09:35 Anion Gap 11.5 H (3-11) mmol/L Total Bilirubin 1.2 H (0.2-1.0) mg/dL Alkaline Phosphatase 259 H (46-116) U/L Total Protein 6.2 L (6.4-8.2) g/dL Albumin 2.4 L (3.4-5.0) g/dL Temp Pulse Resp BP Pulse Ox 97.5 F L 85 16 132/89 98 06/13/24 13:00 06/13/24 17:09 06/13/24 13:00 06/13/24 17:09 06/13/24 07:42 Laboratory Results WBC 9.98 10^3/uL (4.4-10.8) 06/13/24 09:37 RBC 4.50 10^6/uL (3.93-5.22) 06/13/24 09:37 Hgb 13.3 g/dL (11.2-15.7) 06/13/24 09:37 Hct 40.0 % (36.0-46.0) 06/13/24 09:37 MCV 89 fL (80-95) 06/13/24 09:37 MCH 29.6 pg (27.0-33.0) 06/13/24 09:37 MCHC 33.3 % (32.0-36.0) 06/13/24 09:37 RDW 13.7 % (11.7-14.6) 06/13/24 09:37 Plt Count 154 10^3/uL (130-400) 06/13/24 09:37 MPV 10.3 fL (8.0-11.0) 06/13/24 09:37 Sodium 140 mmol/L (136-145) 06/13/24 09:35 Potassium 3.9 mmol/L (3.5-5.1) 06/13/24 09:35 Chloride 106 mmol/L (98-107) 06/13/24 09:35 Carbon Dioxide 22.5 mmol/L (21.0-32.0) 06/13/24 09:35 Anion Gap 11.5 mmol/L (3-11) H 06/13/24 09:35 BUN 9 mg/dL (7-18) 06/13/24 09:35 Creatinine 0.6 mg/dL (0.55-1.02) 06/13/24 09:35 Est GFR (CKD-EPI 2020) 126.09 (mL/min/1.73m2) 06/13/24 09:35 Glucose 105 mg/dL (74-106) 06/13/24 09:35 Calcium 9.0 mg/dL (8.5-10.1) 06/13/24 09:35 Total Bilirubin 1.2 mg/dL (0.2-1.0) H 06/13/24 09:35 AST 16 U/L (15-37) 06/13/24 09:35 ALT 19 U/L (14-59) 06/13/24 09:35 Alkaline Phosphatase 259 U/L (46-116) H 06/13/24 09:35 Total Protein 6.2 g/dL (6.4-8.2) L 06/13/24 09:35 Albumin 2.4 g/dL (3.4-5.0) L 06/13/24 09:35 Ur Random Creatinine 102.40 mg/dL 06/13/24 09:00 U Random Total Protein 12.1 mg/dL 06/13/24 09:00 U [place] Prot/Creat Ratio 0.11 06/13/24 09:00 ABO/Rh O Negative 06/13/24 09:37 Antibody Screen NEGATIVE 06/13/24 09:37 Subjective Patient Reports: No new Complaints Interval history since last seen: Drew is experiencing mild cramping. BP 132/89 Results Hemoglobin/Hematocrit: Hgb 13.3 g/dL (11.2-15.7) 06/13/24 09:37 Hct 40.0 % (36.0-46.0) 06/13/24 09:37 Abnormal Lab Findings: Abnormal Labs 06/13/24 09:35 Anion Gap 11.5 H Total Bilirubin 1.2 H Alkaline Phosphatase 259 H Total Protein 6.2 L Albumin 2.4 L
[2024-06-13] MEDS: Zolpidem 5 MG TAB 10 MG PO (22:07)
--- NOTE | 2024-06-13 23:54 | W.PM.OBNL1 ---
Date of service: 06/13/24 Time of Service: 23:54 Informed Consent Informed Consent: Induction of Labor (stopping misoprostol to rest or continuing medication ) Pelvic Exam Dilation: 1 Effacement (%): 90 station: -1 Cervix Position: posterior Consistency: soft Vaginal Exam Presentation: Cephalic Contractions Monitor Mode: External Contraction Frequency(min): every 2-5 Contraction Duration(sec): 40-60 Intensity: Moderate Fetus A Monitor: External (US) Heart Rate Baseline: 140 Presentation: Cephalic Variability: Moderate (6-25 BPM) Categories: Category I Accelerations: 15 X 15 Decelerations: None Amniotic Membrane Status: Intact Assessment and Plan Assessment and plan (1) Encounter for induction of labor: Status: Acute Assessment and plan: Discussed continuing misoprostol during the night or stopping to rest. She will consider this. Anticipate . Will consider pitocin infusion in the morning if indicated. Objective Abnormal lab results 06/13/24 Range/Units 09:35 Anion Gap 11.5 H (3-11) mmol/L Total Bilirubin 1.2 H (0.2-1.0) mg/dL Alkaline Phosphatase 259 H (46-116) U/L Total Protein 6.2 L (6.4-8.2) g/dL Albumin 2.4 L (3.4-5.0) g/dL Temp Pulse Resp BP Pulse Ox 97.9 F 103 H 16 116/78 98 06/13/24 17:09 06/13/24 23:50 06/13/24 17:09 06/13/24 21:56 06/13/24 07:42 Laboratory Results WBC 9.98 10^3/uL (4.4-10.8) 06/13/24 09:37 RBC 4.50 10^6/uL (3.93-5.22) 06/13/24 09:37 Hgb 13.3 g/dL (11.2-15.7) 06/13/24 09:37 Hct 40.0 % (36.0-46.0) 06/13/24 09:37 MCV 89 fL (80-95) 06/13/24 09:37 MCH 29.6 pg (27.0-33.0) 06/13/24 09:37 MCHC 33.3 % (32.0-36.0) 06/13/24 09:37 RDW 13.7 % (11.7-14.6) 06/13/24 09:37 Plt Count 154 10^3/uL (130-400) 06/13/24 09:37 MPV 10.3 fL (8.0-11.0) 06/13/24 09:37 Sodium 140 mmol/L (136-145) 06/13/24 09:35 Potassium 3.9 mmol/L (3.5-5.1) 06/13/24 09:35 Chloride 106 mmol/L (98-107) 06/13/24 09:35 Carbon Dioxide 22.5 mmol/L (21.0-32.0) 06/13/24 09:35 Anion Gap 11.5 mmol/L (3-11) H 06/13/24 09:35 BUN 9 mg/dL (7-18) 06/13/24 09:35 Creatinine 0.6 mg/dL (0.55-1.02) 06/13/24 09:35 Est GFR (CKD-EPI 2020) 126.09 (mL/min/1.73m2) 06/13/24 09:35 Glucose 105 mg/dL (74-106) 06/13/24 09:35 Calcium 9.0 mg/dL (8.5-10.1) 06/13/24 09:35 Total Bilirubin 1.2 mg/dL (0.2-1.0) H 06/13/24 09:35 AST 16 U/L (15-37) 06/13/24 09:35 ALT 19 U/L (14-59) 06/13/24 09:35 Alkaline Phosphatase 259 U/L (46-116) H 06/13/24 09:35 Total Protein 6.2 g/dL (6.4-8.2) L 06/13/24 09:35 Albumin 2.4 g/dL (3.4-5.0) L 06/13/24 09:35 Ur Random Creatinine 102.40 mg/dL 06/13/24 09:00 U Random Total Protein 12.1 mg/dL 06/13/24 09:00 U [place] Prot/Creat Ratio 0.11 06/13/24 09:00 ABO/Rh O Negative 06/13/24 09:37 Antibody Screen NEGATIVE 06/13/24 09:37 Subjective Patient Reports: No new Complaints Interval history since last seen: BP 116/78. She received ambien PO for rest but has been unable to rest due to discomfort of contractions. She is unable to tolerate lying down and has been sitting on the ball for comfort. Results Hemoglobin/Hematocrit: Hgb 13.3 g/dL (11.2-15.7) 06/13/24 09:37 Hct 40.0 % (36.0-46.0) 06/13/24 09:37 Abnormal Lab Findings: Abnormal Labs 06/13/24 09:35 Anion Gap 11.5 H Total Bilirubin 1.2 H Alkaline Phosphatase 259 H Total Protein 6.2 L Albumin 2.4 L
[2024-06-14] VITALS (248 sets, daily range): BP systolic 96–145; BP diastolic 60–96; PULSE 70–134; RESP 15–97; TEMP 36.4–37.4; O2SAT 96–99; BMI 27.2
--- NOTE | 2024-06-14 04:53 | W.PM.OBNL1 ---
Date of service: 06/14/24 Time of Service: 04:53 Informed Consent Informed Consent: Induction of Labor (stopping misoprostol to rest or continuing medication ) Pelvic Exam Comments: cervical exam deferred Contractions Monitor Mode: External Contraction Frequency(min): every 5-7 minutes Contraction Duration(sec): 40-60 Intensity: Moderate Fetus A Monitor: External (US) Heart Rate Baseline: 140 Presentation: Cephalic Variability: Moderate (6-25 BPM) Categories: Category I FHR Rhythm: Regular Accelerations: 15 X 15 Decelerations: Variable Recurrence: Episodic Amniotic Membrane Status: Intact Assessment Note: variable x 2 associated with movement. Assessment and Plan Assessment and plan (1) Encounter for induction of labor: Status: Acute Assessment and plan: Discussed pain relief options with Drew including epidural and IV fentanyl as well as nubain SC. She prefers to try nubain SC and would like to try to sleep if possible. Nubain 10 mg SC was ordered and rest was encouraged. Will continue to assess heart rate pattern and will reassess labor progress after she has had some rest. Objective Abnormal lab results 06/13/24 Range/Units 09:35 Anion Gap 11.5 H (3-11) mmol/L Total Bilirubin 1.2 H (0.2-1.0) mg/dL Alkaline Phosphatase 259 H (46-116) U/L Total Protein 6.2 L (6.4-8.2) g/dL Albumin 2.4 L (3.4-5.0) g/dL Temp Pulse Resp BP Pulse Ox 97.9 F 89 16 121/84 98 06/13/24 17:09 06/14/24 04:50 06/13/24 17:09 06/14/24 03:10 06/13/24 07:42 Laboratory Results WBC 9.98 10^3/uL (4.4-10.8) 06/13/24 09:37 RBC 4.50 10^6/uL (3.93-5.22) 06/13/24 09:37 Hgb 13.3 g/dL (11.2-15.7) 06/13/24 09:37 Hct 40.0 % (36.0-46.0) 06/13/24 09:37 MCV 89 fL (80-95) 06/13/24 09:37 MCH 29.6 pg (27.0-33.0) 06/13/24 09:37 MCHC 33.3 % (32.0-36.0) 06/13/24 09:37 RDW 13.7 % (11.7-14.6) 06/13/24 09:37 Plt Count 154 10^3/uL (130-400) 06/13/24 09:37 MPV 10.3 fL (8.0-11.0) 06/13/24 09:37 Sodium 140 mmol/L (136-145) 06/13/24 09:35 Potassium 3.9 mmol/L (3.5-5.1) 06/13/24 09:35 Chloride 106 mmol/L (98-107) 06/13/24 09:35 Carbon Dioxide 22.5 mmol/L (21.0-32.0) 06/13/24 09:35 Anion Gap 11.5 mmol/L (3-11) H 06/13/24 09:35 BUN 9 mg/dL (7-18) 06/13/24 09:35 Creatinine 0.6 mg/dL (0.55-1.02) 06/13/24 09:35 Est GFR (CKD-EPI 2020) 126.09 (mL/min/1.73m2) 06/13/24 09:35 Glucose 105 mg/dL (74-106) 06/13/24 09:35 Calcium 9.0 mg/dL (8.5-10.1) 06/13/24 09:35 Total Bilirubin 1.2 mg/dL (0.2-1.0) H 06/13/24 09:35 AST 16 U/L (15-37) 06/13/24 09:35 ALT 19 U/L (14-59) 06/13/24 09:35 Alkaline Phosphatase 259 U/L (46-116) H 06/13/24 09:35 Total Protein 6.2 g/dL (6.4-8.2) L 06/13/24 09:35 Albumin 2.4 g/dL (3.4-5.0) L 06/13/24 09:35 Ur Random Creatinine 102.40 mg/dL 06/13/24 09:00 U Random Total Protein 12.1 mg/dL 06/13/24 09:00 U [place] Prot/Creat Ratio 0.11 06/13/24 09:00 ABO/Rh O Negative 06/13/24 09:37 Antibody Screen NEGATIVE 06/13/24 09:37 Subjective Patient Reports: No new Complaints Interval history since last seen: Drew segundo PO for rest but has been unable to sleep and has showered x 2 and used the ball to sit on all night. She complain of fatigue and would like to discuss pain relief options. Results Hemoglobin/Hematocrit: Hgb 13.3 g/dL (11.2-15.7) 06/13/24 09:37 Hct 40.0 % (36.0-46.0) 06/13/24 09:37 Abnormal Lab Findings: Abnormal Labs 06/13/24 09:35 Anion Gap 11.5 H Total Bilirubin 1.2 H Alkaline Phosphatase 259 H Total Protein 6.2 L Albumin 2.4 L
[2024-06-14] MEDS: Nalbuphine 10 MG/ML AMP SC (05:05)
[2024-06-14] MEDS: Lactated Ringers 500 ML IV (06:30)
--- NOTE | 2024-06-14 06:48 | ANES.PREOP_ITS ---
General Info Date of Service Date Performed: 06/14/24 Height: 5 ft 6 in Weight: 76.657 kg Body Mass Index (BMI): 27.2 Surgical Procedure: Labor epidural Meds Allergies and Home Medications Allergies Allergy/AdvReac Type Severity Reaction Status Date / Time azithromycin (From Zithromax) Allergy Intermediate HIVES Unverified 06/13/24 09:58 Home Medication ?Medication ?Instructions ?Recorded albuterol sulfate 90 mcg/actuation 2 puff inhalation Q4H PRN ##1 09/11/22 aerosol inhaler amitriptyline 10 mg tablet 10 mg PO QHS #90 tabs 09/14/23 cetirizine 10 mg capsule (Zyrtec) 10 mg PO DAILY PRN 09/14/23 fluticasone propionate 44 2 puff inhalation BID PRN ##1 11/14/23 mcg/actuation HFA aerosol inhaler (Flovent HFA) docusate sodium 100 mg capsule 100 mg PO BID #60 caps 11/30/23 (Colace) nature made 1 tab PO DAILY 01/02/24 Current Visit Medications: Current Medications Generic Name Dose Route Start Last Admin Trade Name Freq PRN Reason Stop Dose Admin Fentanyl/Ropivacaine 200 ml 06/14/24 06:30 Fentanyl/Ropivacaine 2 Mcg/Ml And 0.1% 200 Ml Cadd Cassette EP DIRECTED THEA Ringer's Solution 1,000 mls @ 200 mls/hr 06/13/24 09:00 IV INFUSION THEA Ringer's Solution 500 mls @ 500 mls/hr 06/14/24 06:28 IV 06/14/24 07:27 BOLUS ONE IV Miscellaneous Supplies 1 each 06/13/24 09:00 Iv Access IV DIRECTED THEA Misoprostol 50 mcg 06/13/24 09:00 06/13/24 17:15 Misoprostol 25 Mcg Tab PO 50 mcg Q4H THEA Administration Sodium Chloride 0 ml 06/13/24 08:53 Normal Saline Flush 10 Ml Syr IVP PRN PRN Sodium Chloride 0 ml 06/13/24 20:00 Normal Saline Flush 10 Ml Syr IVP BID THEA Sodium Chloride 0 ml 06/13/24 08:53 Normal Saline 10 Ml Vial IJ DIRECTED PRN Terbutaline Sulfate 0.25 mg 06/13/24 08:53 Terbutaline 1 Mg/Ml Vial SC PRN PRN PFSH Active Problems Active Problems: Problem Status Onset Code Gestational hypertension Acute O13.9 Encounter for induction of labor Acute Z34.90 Acute Z34.90 Varicose veins during , antepartum Acute O22.00 Rh negative status during Acute O26.899, Z67.91 Depression Chronic F32.A Anxiety Chronic F41.9 Asthma Chronic J45.909 Rosacea Acute L71.9 Interstitial cystitis Acute N30.10 Seasonal allergies Acute J30.2 Migraine with aura Acute 08/25/14 G43.109 Eczema Acute 11/06/12 L30.9 Facial contusion Acute S00.83XA Head injury Acute S09.90XA Medical History Medical History (Updated 06/13/24 @ 10:00 by Savita Givens CNM) Elevated glucose Varicose vein of lower extremity with phlebitis History of frequent urinary tract infections Chronic idiopathic urticaria (12/24/13) Encounter for removal and reinsertion of Nexplanon BCP ( control pills) initiation Recurrent tonsillitis (12/11/13) Irregular periods (09/28/11) Hx of tonsillitis Acne (11/07/11) Head injury Migraine has neuro eval 09/2014 Multiple allergies sees dependency counselor. Surgical History Surgical History Tonsillectomy (02/09/14) Myringotomy w/ PE (pressure equalizing) tubes Tobacco Smoking/Tobacco Use Status: Never Passive smoking exposure: Yes Second hand exposure: Yes Alcohol Alcohol Intake: former Substance Use Substance use: Never Substance use type: does not use Prental History History 2 1 Para 0 Hx # Term Pregnancies 0 Multiple births 0 Hx # Pregnancies 0 Ectopic pregnancies 0 AB induced 0 Hx Number of Living Children 0 AB spontaneous 0 Vital Signs and Lab Results Vital Signs Most Recent Vital Signs in EMR: Most Recent Vital Signs Temp Pulse Resp BP Pulse Ox 36.6 C 99 H 16 121/84 98 06/13/24 17:09 06/14/24 06:46 06/13/24 17:09 06/14/24 03:10 06/13/24 07:42 Lab Results 06/13/24 09:37 06/13/24 09:35 Blood Type / Crossmatch: 2 Antibody Screen NEGATIVE 06/13/24 Complete Blood Count: 2 White Blood Count 9.98 10^3/uL (4.4-10.8) 06/13/24 09:37 Red Blood Count 4.50 10^6/uL (3.93-5.22) 06/13/24 09:37 Hemoglobin 13.3 g/dL (11.2-15.7) 06/13/24 09:37 Hematocrit 40.0 % (36.0-46.0) 06/13/24 09:37 Platelet Count 154 10^3/uL (130-400) 06/13/24 09:37 Complete Metabolic Panel: 2 Sodium 140 mmol/L (136-145) 06/13/24 09:35 Potassium 3.9 mmol/L (3.5-5.1) 06/13/24 09:35 Chloride 106 mmol/L (98-107) 06/13/24 09:35 Carbon Dioxide 22.5 mmol/L (21.0-32.0) 06/13/24 09:35 BUN 9 mg/dL (7-18) 06/13/24 09:35 Creatinine 0.6 mg/dL (0.55-1.02) 06/13/24 09:35 Est GFR (CKD-EPI 2020) 126.09 (mL/min/1.73m2) 06/13/24 09:35 Calcium 9.0 mg/dL (8.5-10.1) 06/13/24 09:35 Albumin 2.4 g/dL (3.4-5.0) L 06/13/24 09:35 Glucose 105 mg/dL (74-106) 06/13/24 09:35 Liver Function Panel: 2 Alanine Aminotransferase (ALT/SGPT) 19 U/L (14-59) 06/13/24 09: 35 Aspartate Amino Transf (AST/SGOT) 16 U/L (15-37) 06/13/24 09:35 Coagulation Panel: 2 No Data to Display Cardiac Panel: 2 No Data to Display Arterial Blood Gas: 2 No Data to Display Venous Blood Gas: 2 No Data to Display Pancreas Panel: 2 No Data to Display Thyroid Panel: 2 No Data to Display Infectious Disease: 2 No Data to Display Blood Cultures: 2 No Data to Display Toxicology Panel: 2 No Data to Display Panel: 2 No Data to Display Anesthesia Assessment and Plan Anesthesia History Personal History: No History of Anesthesia Complications Family History: No Family History of Anesthesia Complications Exercise Tolerance Exercise Tolerance: Metabolic Equivalents>4 Pertinent Negatives Pertinent Negatives: No Major Cardiovascular Symptoms or Complaints and No Major Pulmonary Symptoms or Complaints Cardiac & Pulmonary Exam Cardiac Exam: Normal S1/S2 Heart Sounds Pulmonary Exam: Clear Bilateral Breath Sounds Implantable Cardiac Device Does patient have a Pacemaker or an ICD?: No Airway Exam Known Difficult Airway: No Mallampati Class: 2 Mouth Opening: Normal (> 3cm) Thyromental Distance: Greater than 3 cm Neck Range of Motion: Full ROM Neck Circumference: Normal Teeth Condition: Normal Dentition ASA Classification ASA Score: ASA 2 Emergency Case?: No NPO Status NPO Status: NPO Clears >2 hours, Solids >8 hours and Full Stomach () Status Status: Confirmed Anesthesia Plan Resuscitation Status: Full Code Anesthesia Technique: Labor Epidural Airway Planned: Natural Airway Monitors Used: Standard Monitors
[2024-06-14] MEDS: Lactated Ringers 1,000 ML 200 ML IV ×3 (07:30→15:17)
--- NOTE | 2024-06-14 07:35 | W.ANESNEU ---
Epidural/Spinal Catheter Date Performed: 06/14/24 Procedure Start: 07:10 Procedure Stop: 07:38 Requesting Provider: Savita Givens Procedure Location: Obstetrics Reason Performed: Labor Epidural Standard Monitors Applied: Blood Pressure, SpO2 and See EMR for corresponding vital signs Patient Position: Sitting Sedation Given (Indicate Dose Given): No Sedation given Patient Mental Status: Awake Sterility: Hand Hygiene, Surgical Cap, Surgical Mask, Sterile Gloves, Sterile Drape/Sheet and Chlorhexidine Procedure Location: L2-L3 Interspace Epidural Needle: Tuohy 18 Gauge Needle Length: 3.5 Inch Needle Approach: Midline Epidural Procedure: Skin Prepped, Sterile Drape Placed, 1% Lidocaine to skin and subcutaneous tissue with 25G needle, Tuohy Needle placed, [place] to Saline Used, Epidural Catheter Placed, Negative Heme, Negative CSF Flow and Tuohy Needle Removed Catheter Placed?: Catheter Placed Test Dose (Indicate Dose Given): 3ml 1.5% Lidocaine with 1:200K Epinephrine Given and Negative Test Dose (@0716) Loss of Resistance Depth (cm): 6 Catheter depth at skin (cm): 12 Dressing: Sorbaview Dressing Placed and Mastisol Used Epidural Provider Bolus (Indicate Dose Given): Total bolus dose given in 3-5 ml divided doses and Total Bupivacaine 0.25% Given (ml) Dose:: 6 ml Additives (Indicate Dose Given ): Fentanyl PF Dose:: 100 mcg Infusion Medication: Medication Infusion Began Medication Infusion: Ropivacaine 0.1% with Fentanyl 2mcg/ml (infusion started @ 0731) Maintenance Infusion Rate (ml/hour): 10 PCEA Bolus Dose (ml): 5 Post Procedure Pain score (0-10): 0 Block Level: N/A Paresthesia: None Ultrasound: Not Used Number of Attempts (See previous attempts in note section): 1 Procedure Tolerated: No Complications and Patient tolerated well Procedure Outcome: Successful Performed By: Latha Lopes
[2024-06-14] MEDS: FentaNYL/ROPIvacaine 2 mcg/ml and 0.1% 200 ML CADD Cassette EP (07:36)
[2024-06-14] MEDS: Bupivacaine 0.25% Pres-Free 10 ML VIAL EP (07:36)
[2024-06-14] MEDS: fentaNYL 100 MCG/2 ML VIAL EP (07:36)
--- NOTE | 2024-06-14 07:41 | W.PM.OBNL1 ---
Date of service: 06/14/24 Time of Service: 07:41 Informed Consent Informed Consent: Induction of Labor (stopping misoprostol to rest or continuing medication ) Pelvic Exam Dilation: 3 Effacement (%): 90 station: -1 Cervix Position: posterior Consistency: soft Vaginal Exam Presentation: Cephalic Pooling: Positive Contractions Monitor Mode: External Contraction Frequency(min): every 2-6 Contraction Duration(sec): 40-60 Intensity: Moderate/Strong Fetus A Monitor: External (US) Heart Rate Baseline: 130 Presentation: Cephalic Variability: Moderate (6-25 BPM) Categories: Category I Accelerations: 15 X 15 Decelerations: None Amniotic Membrane Status: Ruptured Rupture Method: Spontaneous Amniotic Fluid: Clear Amount: large Date of Membrane Rupture: 06/14/24 Time of Membrane Rupture: 06:10 Assessment and Plan Assessment and plan (1) Encounter for induction of labor: Status: Acute Assessment and plan: Will start pitocin augmnetation for irregular contraction pattern and rest was encouraged. Anticipate . Objective Abnormal lab results 06/13/24 Range/Units 09:35 Anion Gap 11.5 H (3-11) mmol/L Total Bilirubin 1.2 H (0.2-1.0) mg/dL Alkaline Phosphatase 259 H (46-116) U/L Total Protein 6.2 L (6.4-8.2) g/dL Albumin 2.4 L (3.4-5.0) g/dL Temp Pulse Resp BP Pulse Ox 97.9 F 117 H 16 124/74 98 06/13/24 17:09 06/14/24 07:38 06/13/24 17:09 06/14/24 07:38 06/13/24 07:42 Laboratory Results WBC 9.98 10^3/uL (4.4-10.8) 06/13/24 09:37 RBC 4.50 10^6/uL (3.93-5.22) 06/13/24 09:37 Hgb 13.3 g/dL (11.2-15.7) 06/13/24 09:37 Hct 40.0 % (36.0-46.0) 06/13/24 09:37 MCV 89 fL (80-95) 06/13/24 09:37 MCH 29.6 pg (27.0-33.0) 06/13/24 09:37 MCHC 33.3 % (32.0-36.0) 06/13/24 09:37 RDW 13.7 % (11.7-14.6) 06/13/24 09:37 Plt Count 154 10^3/uL (130-400) 06/13/24 09:37 MPV 10.3 fL (8.0-11.0) 06/13/24 09:37 Sodium 140 mmol/L (136-145) 06/13/24 09:35 Potassium 3.9 mmol/L (3.5-5.1) 06/13/24 09:35 Chloride 106 mmol/L (98-107) 06/13/24 09:35 Carbon Dioxide 22.5 mmol/L (21.0-32.0) 06/13/24 09:35 Anion Gap 11.5 mmol/L (3-11) H 06/13/24 09:35 BUN 9 mg/dL (7-18) 06/13/24 09:35 Creatinine 0.6 mg/dL (0.55-1.02) 06/13/24 09:35 Est GFR (CKD-EPI 2020) 126.09 (mL/min/1.73m2) 06/13/24 09:35 Glucose 105 mg/dL (74-106) 06/13/24 09:35 Calcium 9.0 mg/dL (8.5-10.1) 06/13/24 09:35 Total Bilirubin 1.2 mg/dL (0.2-1.0) H 06/13/24 09:35 AST 16 U/L (15-37) 06/13/24 09:35 ALT 19 U/L (14-59) 06/13/24 09:35 Alkaline Phosphatase 259 U/L (46-116) H 06/13/24 09:35 Total Protein 6.2 g/dL (6.4-8.2) L 06/13/24 09:35 Albumin 2.4 g/dL (3.4-5.0) L 06/13/24 09:35 Ur Random Creatinine 102.40 mg/dL 06/13/24 09:00 U Random Total Protein 12.1 mg/dL 06/13/24 09:00 U [place] Prot/Creat Ratio 0.11 06/13/24 09:00 ABO/Rh O Negative 06/13/24 09:37 Antibody Screen NEGATIVE 06/13/24 09:37 Subjective Patient Reports: New Complaints Interval history since last seen: Drew rested with nubain for a short time before her water broke for a large amount of clear fluid. She requested epidural analgesia and Jocelyn STRANGE was paged and provided epidural analgesia. BP 120s/70-80s. Results Hemoglobin/Hematocrit: Hgb 13.3 g/dL (11.2-15.7) 06/13/24 09:37 Hct 40.0 % (36.0-46.0) 06/13/24 09:37 Abnormal Lab Findings: Abnormal Labs 06/13/24 09:35 Anion Gap 11.5 H Total Bilirubin 1.2 H Alkaline Phosphatase 259 H Total Protein 6.2 L Albumin 2.4 L
[2024-06-14] MEDS: Oxytocin/Normal Saline 30 UNIT/500 ML BAG 2 UNITS IV (08:09)
[2024-06-14] MEDS: Ondansetron 4 MG/2 ML VIAL IVP (09:56)
--- NOTE | 2024-06-14 12:40 | PGE_ITS ---
Date of service: 06/14/24 Time of Service: 12:40 Informed Consent Informed Consent: Induction of Labor (stopping misoprostol to rest or continuing medication ) Pelvic Exam Dilation: 9 station: +1 Cervix Position: mid Consistency: soft Vaginal Exam Presentation: Cephalic Contractions Monitor Mode: External Contraction Frequency(min): every 2 - 5 Contraction Duration(sec): 50-60 Intensity: Moderate/Strong Fetus A Monitor: External (US) Heart Rate Baseline: 120 Presentation: Cephalic Variability: Moderate (6-25 BPM) Categories: Category I FHR Rhythm: Regular Accelerations: 15 X 15 Decelerations: None Amniotic Membrane Status: Ruptured Assessment and Plan Assessment and plan (1) Encounter for induction of labor: Status: Acute Assessment and plan: Encouraged to continue laboring down and position changes suggested. Will r eassess in 1-2 hours and assist with pushing. Objective Temp Pulse Resp BP Pulse Ox 98.8 F 116 H 15 128/74 98 06/14/24 11:21 06/14/24 12:34 06/14/24 08:23 06/14/24 12:34 06/14/24 11:31 Laboratory Results WBC 9.98 10^3/uL (4.4-10.8) 06/13/24 09:37 RBC 4.50 10^6/uL (3.93-5.22) 06/13/24 09:37 Hgb 13.3 g/dL (11.2-15.7) 06/13/24 09:37 Hct 40.0 % (36.0-46.0) 06/13/24 09:37 MCV 89 fL (80-95) 06/13/24 09:37 MCH 29.6 pg (27.0-33.0) 06/13/24 09:37 MCHC 33.3 % (32.0-36.0) 06/13/24 09:37 RDW 13.7 % (11.7-14.6) 06/13/24 09:37 Plt Count 154 10^3/uL (130-400) 06/13/24 09:37 MPV 10.3 fL (8.0-11.0) 06/13/24 09:37 Sodium 140 mmol/L (136-145) 06/13/24 09:35 Potassium 3.9 mmol/L (3.5-5.1) 06/13/24 09:35 Chloride 106 mmol/L (98-107) 06/13/24 09:35 Carbon Dioxide 22.5 mmol/L (21.0-32.0) 06/13/24 09:35 Anion Gap 11.5 mmol/L (3-11) H 06/13/24 09:35 BUN 9 mg/dL (7-18) 06/13/24 09:35 Creatinine 0.6 mg/dL (0.55-1.02) 06/13/24 09:35 Est GFR (CKD-EPI 2020) 126.09 (mL/min/1.73m2) 06/13/24 09:35 Glucose 105 mg/dL (74-106) 06/13/24 09:35 Calcium 9.0 mg/dL (8.5-10.1) 06/13/24 09:35 Total Bilirubin 1.2 mg/dL (0.2-1.0) H 06/13/24 09:35 AST 16 U/L (15-37) 06/13/24 09:35 ALT 19 U/L (14-59) 06/13/24 09:35 Alkaline Phosphatase 259 U/L (46-116) H 06/13/24 09:35 Total Protein 6.2 g/dL (6.4-8.2) L 06/13/24 09:35 Albumin 2.4 g/dL (3.4-5.0) L 06/13/24 09:35 Ur Random Creatinine 102.40 mg/dL 06/13/24 09:00 U Random Total Protein 12.1 mg/dL 06/13/24 09:00 U [place] Prot/Creat Ratio 0.11 06/13/24 09:00 ABO/Rh O Negative 06/13/24 09:37 Antibody Screen NEGATIVE 06/13/24 09:37 Subjective Patient Reports: New Complaints Interval history since last seen: Drew complains of rectal discomfort and pressure Results Hemoglobin/Hematocrit: Hgb 13.3 g/dL (11.2-15.7) 06/13/24 09:37 Hct 40.0 % (36.0-46.0) 06/13/24 09:37 Abnormal Lab Findings: Abnormal Labs 06/13/24 09:35 Anion Gap 11.5 H Total Bilirubin 1.2 H Alkaline Phosphatase 259 H Total Protein 6.2 L Albumin 2.4 L
--- NOTE | 2024-06-14 16:12 | W.PM.OBNL1 ---
Date of service: 06/14/24 Time of Service: 16:12 Informed Consent Informed Consent: Induction of Labor (stopping misoprostol to rest or continuing medication ) Pelvic Exam Dilation: 10 station: +1 Contractions Monitor Mode: External Contraction Frequency(min): every 2-5 Contraction Duration(sec): 60-80 Intensity: Moderate/Strong Fetus A Monitor: External (US) Heart Rate Baseline: 130 Variability: Moderate (6-25 BPM) Categories: Category I Accelerations: 15 X 15 Decelerations: Variable Recurrence: Intermittent Assessment and Plan Assessment and plan (1) Encounter for induction of labor: Status: Acute Assessment and plan: Will continue to assist with pushing. Will consult with Dr Kraus after 2 hours of adequate pushing . Anticipate . Objective Temp Pulse Resp BP Pulse Ox 98.3 F 108 H 15 129/77 98 06/14/24 14:47 06/14/24 14:50 06/14/24 08:23 06/14/24 14:47 06/14/24 14:47 Laboratory Results WBC 9.98 10^3/uL (4.4-10.8) 06/13/24 09:37 RBC 4.50 10^6/uL (3.93-5.22) 06/13/24 09:37 Hgb 13.3 g/dL (11.2-15.7) 06/13/24 09:37 Hct 40.0 % (36.0-46.0) 06/13/24 09:37 MCV 89 fL (80-95) 06/13/24 09:37 MCH 29.6 pg (27.0-33.0) 06/13/24 09:37 MCHC 33.3 % (32.0-36.0) 06/13/24 09:37 RDW 13.7 % (11.7-14.6) 06/13/24 09:37 Plt Count 154 10^3/uL (130-400) 06/13/24 09:37 MPV 10.3 fL (8.0-11.0) 06/13/24 09:37 Sodium 140 mmol/L (136-145) 06/13/24 09:35 Potassium 3.9 mmol/L (3.5-5.1) 06/13/24 09:35 Chloride 106 mmol/L (98-107) 06/13/24 09:35 Carbon Dioxide 22.5 mmol/L (21.0-32.0) 06/13/24 09:35 Anion Gap 11.5 mmol/L (3-11) H 06/13/24 09:35 BUN 9 mg/dL (7-18) 06/13/24 09:35 Creatinine 0.6 mg/dL (0.55-1.02) 06/13/24 09:35 Est GFR (CKD-EPI 2020) 126.09 (mL/min/1.73m2) 06/13/24 09:35 Glucose 105 mg/dL (74-106) 06/13/24 09:35 Calcium 9.0 mg/dL (8.5-10.1) 06/13/24 09:35 Total Bilirubin 1.2 mg/dL (0.2-1.0) H 06/13/24 09:35 AST 16 U/L (15-37) 06/13/24 09:35 ALT 19 U/L (14-59) 06/13/24 09:35 Alkaline Phosphatase 259 U/L (46-116) H 06/13/24 09:35 Total Protein 6.2 g/dL (6.4-8.2) L 06/13/24 09:35 Albumin 2.4 g/dL (3.4-5.0) L 06/13/24 09:35 Ur Random Creatinine 102.40 mg/dL 06/13/24 09:00 U Random Total Protein 12.1 mg/dL 06/13/24 09:00 U [place] Prot/Creat Ratio 0.11 06/13/24 09:00 ABO/Rh O Negative 06/13/24 09:37 Antibody Screen NEGATIVE 06/13/24 09:37 Vital Signs Reviewed: Yes Subjective Patient Reports: No new Complaints Interval history since last seen: Drew was examined at 1445 and was fully dilated with vertex at + 1. Caput noted but limited molding. She was encouraged to begin bearing down and was assisted with pushing. There has been limited descent with adequate maternal pushing efforts. Pitocin is at 20 mu/min Results Hemoglobin/Hematocrit: Hgb 13.3 g/dL (11.2-15.7) 06/13/24 09:37 Hct 40.0 % (36.0-46.0) 06/13/24 09:37 Abnormal Lab Findings: Abnormal Labs 06/13/24 09:35 Anion Gap 11.5 H Total Bilirubin 1.2 H Alkaline Phosphatase 259 H Total Protein 6.2 L Albumin 2.4 L
--- NOTE | 2024-06-14 17:36 | W.OBDELIVERY ---
Date of service: 06/14/24 Time of Service: 17:36 OB Labor/ Delivery Information Baby A Delivery Delivery Method: Spontaneaous Presentation: Cephalic Cephalic Position: Vertex Vertex Position: Right Occipital Anterior Cord Description-Baby A: 3 Vessels Cord Description Comment: loop of cord next to shoulder Amniotic Fluid: Clear Estimated Blood Loss: 300 Delivery Outcome: Liveborn Transferred: Remains with Mother Note: FHTs 130s during first stage of labor with occasional variable decelerations. FHTs 130s in second stage. She began pushing well at 1445. Second stage huddle was done. She pushed in various positions and made slow descent. She was moved to the commode with assitance of GISELL crane to void and began to crown after standing up from the commode. The call arita was rung and linda controlled delivery of the head. The head was upon my arrival and I delivered the body and passed the baby boy to Makennah's arms as she was moved back into bed. The male delivered in ERNESTINE position. Baby was dried and stimulated. Spontaneous cry. Cord was clamped and cut by the baby's father after it stopped pulsing. The placenta delivered spontaneously and appears to by intact with a three vessel cord. Pitocin 30 units IV was administered before delivery of the placenta. The perineum was inspected and a second degree laceration was noted. The baby did breastfeed. After delivery, Mother and baby and father of the baby were stable and bonding well in the delivery room and there were no complications. Providers Nurse Motion Picture Set Up Worker: Savita Givens Nurse: Linda Navarrete Nurse: Kevin Arriaga Labor/Delivery Information Number of Babies in Womb: 1 Steroids Given: None Reason Steroids Not Administered: N/A Group Beta Strep: Negative Antibiotics Administered: No Rubella Status: Immune Blood Type: O- Varicella Immunity: Immune Medication in Delivery: pitocin, zofran Born En Route: No Maternal Complications: None Shoulder Dystocia: No Stages of Labor Onset of Labor Date: 06/14/24 Onset of Labor Time: 07:30 Complete Dilatation Date: 06/14/24 Complete Dilatation Time: 13:30 Labor - Stage 1 Duration: 6 hours and 0 minutes ROM Baby A: 06/14/24 ROM Baby A: 06:10 ROM Total Time- Baby A: [id number] Infant Delivery Date-Baby A: 06/14/24 Infant Delivery Time-Baby A: 16:20 Labor Stage 2 Duration: 2 hours and 50 minutes Placenta Delivery Date-Baby A: 06/14/24 Placenta Delivery Time-Baby A: 16:30 Labor-Stage 3 Duration: 10 minutes Total Length of Labor-Baby A: 8 hours and 50 minutes Placenta Cultured: No Placenta Status: Delivered Baby A Infant Gender: Male Gestational Status: Early Term (37-38.6 wks) Gestational Age in Weeks/Days: 38 Weeks and 6 Days Score-1 Minute Interval(Baby A) Heart Rate-1 minute: 100 BPM or Greater Respiratory Effort- 1 minute: Spontaneous/Strong Cry Muscle Tone-1 minute: Active Movement Reflex Response-1 minute: Prompt Response Color-1 minute: Pallor or Cyanosis Total Score-1 minute: 8 Score-5 Minute Interval(Baby A) Heart Rate- 5 minute: 100 BPM or Greater Respiratory Effort-5 minute: Spontaneous/Strong Cry Muscle Tone-5 minute: Active Movement Reflex Response-5 minute: Prompt Response Color-5 minute: Bluish Hands or Feet Total Score- 5 minute: 9 Interventions Repair of Laceration Type: Perineal, Laceration Extension: Second Degree. Sponge Count Correct: No Sponges Placed in Vagina, Sharp Count Correct: Yes. Laceration Repair Note: perineal repair with 3-0 vicryl suture under epidural analgesia. Makennah tolerated well.
[2024-06-14] MEDS: Dibucaine 1% 28 GM TUBE TP (18:41)
[2024-06-14] MEDS: Hamamelis Leaf/Glycerin 100 EACH BOX PR (18:41)
[2024-06-14] MEDS: Ibuprofen 600 MG TAB PO (18:42)
[2024-06-14] MEDS: Acetaminophen 325 MG TAB 650 MG PO (18:42)
[2024-06-15 00:48] VITALS: BP 120/82; PULSE 83; RESP 17; TEMP 36.9; O2SAT 99
[2024-06-15] MEDS: Acetaminophen 325 MG TAB 650 MG PO ×2 (05:24→11:54)
[2024-06-15] MEDS: Ibuprofen 600 MG TAB PO ×2 (05:25→11:54)
[2024-06-15 07:40] VITALS: BP 112/76; PULSE 91; RESP 16; TEMP 36.5; O2SAT 98
[2024-06-15 11:55] VITALS: BP 115/76; PULSE 78; RESP 16; TEMP 36.4; O2SAT 98
[2024-06-15] MEDS: RHO(D) Immune Globulin 1,500 UNIT Syringe 1500 UNIT IM (13:21)
--- NOTE | 2024-06-15 15:42 | W.PM.OBDISCH ---
Date of service: 06/15/24 Time of Service: 15:59 DS: Diagnosis Discharge Diagnosis (1) Term of male : Status: Acute Asessment and Plan: Caring for baby independently. Pain is managed well with oral analgesics. Voiding without difficulty. well. A - stable mother and baby , Post day 1 P - Discharge to home this evening pending results of bilirubin test. Rhogam before discharge. Routine post instructions. [facility]. (2) Depression: Status: Chronic Asessment and Plan: Reviewed signs of post depression Discharge Plan Disposition Patient Disposition: Home Condition: Good Discharge Details Reason For Visit: Induction of Labor Admit Date/Time: 06/13/24 07:36 Admit Provider: Savita Givens Attending Provider: Savita Givens Primary Care Provider: Callum Faust Home Meds and New Rx's Prescriptions: No Action albuterol sulfate 90 mcg/actuation HFA aerosol inhaler 2 puff Inhalation Q4H PRN Qty: 1 0RF Rx Instructions: also use 20 minutes prior to exercise Zyrtec 10 mg capsule 10 mg PO DAILY PRN amitriptyline 10 mg tablet 10 mg PO QHS Qty: 90 4RF nature made 1 tab PO DAILY docusate sodium [Colace] 100 mg capsule 100 mg PO BID Qty: 60 4RF fluticasone propionate [Flovent HFA] 44 mcg/actuation HFA aerosol inhaler 2 puff Inhalation BID PRNQty: 1 Patient Comments: 08/25/14-uses as needed- not currently Discharge Instructions Stand Alone Forms: Instructions, BC Post Vaginal Deliver Activity:: Activity as Tolerated Equipment/Supplies:: No Equipment Needed Diet:: As Tolerated OB:DS Summary Summary Vaginal Delivery Method: Spontaneaous Episiotomy Description: None Laceration Description: Perineal Laceration Extension: Second Degree Contraception Discussed Contraception Discussed: Yes Contraceptive Plan: Levonorgestrel Implant, [place] Infant Gender-Baby A: Male weight: 7 lb 6.521 oz Status at Discharge Functional status at discharge: independent ambulation Overall status at discharge: patient is back to baseline Mental Status: mental status grossly normal Speech and Movement: speech and movement normal Mood: congruent mood Affect: normal affect Quality:SDOH Health Related Social Needs: Health related social needs details N/A Exam Physical Exam Vital signs: Temp Pulse Resp BP Pulse Ox 97.5 F L 78 16 115/76 98 06/15/24 11:55 06/15/24 11:55 06/15/24 11:55 06/15/24 11:55 06/15/24 11:55 Vital Signs Reviewed: Yes Constitutional Constitutional: no acute distress HEENT Exam HEENT Exam: Normal Respiratory Exam Respiratory Exam: Normal Cardiovascular Exam Cardiovascular Exam: Normal Fundal Exam Fundus: Below Umbilicus and Firm Exam Patient deferred: external exam Perineum: Edematous Extremities Exam Extremity Exam: Normal Skin Exam Skin Exam: Normal Psychiatric Exam Psychiatric Exam: Normal PFSH All Active Problems (Updated 06/15/24 @ 15:44 by Savita Givens CNM) Term of male (Acute) (Acute) Depression (Chronic) Medical History (Updated 06/15/24 @ 15:44 by Savita Givens CNM) Anxiety Asthma Rosacea Interstitial cystitis Seasonal allergies Migraine with aura (08/25/14) Eczema (11/06/12) Facial contusion Head injury Varicose vein of lower extremity with phlebitis History of frequent urinary tract infections Chronic idiopathic urticaria (12/24/13) Recurrent tonsillitis (12/11/13) Irregular periods (09/28/11) Hx of tonsillitis Acne (11/07/11) Head injury Migraine has neuro eval 09/2014 Multiple allergies sees matcher operator. Surgical History Tonsillectomy (02/09/14) Myringotomy w/ PE (pressure equalizing) tubes Family History (Updated 11/30/23 @ 08:47 by Savita Givens CNM) Mother Hypertensive disorder, systemic arterial off meds now Migraines Hypertension Sister Migraines Father Alcohol use disorder Maternal Grandmother Personal history of malignant neoplasm skin Bipolar disorder current episode depressed Maternal Grandfather Hypertensive disorder, systemic arterial Heart disease bypass Social History (Updated 09/14/23 @ 13:00 by Anne-Marie Ball) Smoking/Tobacco Use Status: Never Second Hand Exposure: Yes Smoking risk assessment performed?: Yes Alcohol Intake: former Drug use: Never Substance use type: does not use Caregiver/Support person: No Household members: significant other Housing: house Communication Needs: None Education Level: college Do you need help understanding health information?: Never Pets and animals: Yes Pets and animals: dog(s) Sexually active: Yes Do you think of yourself as: straight/heterosexual Current gender identity: female What is your relationship status?: living with partner How often do you talk on the phone with friends or family?: three or more times per week How often do you get together with friends or relatives?: three or more times per week How often do you attend christianity or latter-day services?: decline to answer Do you belong to any clubs or organized social groups?: no Panel score (0-1 are the most socially isolated patients): 2 What type of physical activity do you participate in: walking Duration: 15-30 minutes/day Frequency: daily Rayna/Latter-Day: None Special rayna needs: No Seatbelt use: always Drive intox or ride w/intox backhaul driver: No Do you feel safe at home: Yes Do you feel safe in your relationship?: Yes Female Reproductive History Menstrual control method: implanted History History 1 Para 0 Hx # Term Pregnancies 0 Multiple births 0 Hx # Pregnancies 0 Ectopic pregnancies 0 AB induced 0 Hx Number of Living Children 0 AB spontaneous 0 DS: Data Vitals/I&O Vitals and I&O: Vital Signs Temperature 97.5 F L 06/15/24 11:55 Temperature 97.5 F 06/13/24 09:57 Temperature Source Oral 06/15/24 11:55 Pulse 78 06/15/24 11:55 Pulse 107 06/13/24 09:57 Pulse Rhythm Regular 06/15/24 07:40 Respiratory Rate 16 06/15/24 11:55 Respiratory Depth Normal 06/14/24 22:08 Blood Pressure 115/76 06/15/24 11:55 Blood Pressure 127/91 06/13/24 09:57 Blood Pressure Mean 89 06/15/24 11:55 Pulse Oximetry 98 06/15/24 11:55 Oxygen Delivery Method Room Air 06/13/24 09:01 Oxygen Flow Rate 0 06/13/24 09:01 Pain Level 2 06/15/24 12:54 Intake & Output 06/14/24 06/15/24 06/15/24 23:59 11:59 23:59 Intake Total 1168.801 / 2164.368 Output Total 650 / 830 1500 / 1500 Balance 518.801 / 1334.368 -1500 / -1500 Intake: IV 1168.801 / 2164.368 Output: Urine 650 / 830 1500 / 1500 Other: Urine Color Yellow Data Completed and Pending Labs on day of discharge: Labs from last 24 hours 06/15/24 06/15/24 06/13/24 11:12 10:30 09:37 Screen Cancelled Pending [facility] Unit Number [id number] Unit Expiration Date 02/18/2025 Product Lot # [id number]
--- NOTE | 2024-06-15 16:54 | W.ANESPOSTOP ---
Postoperative Evaluation Date, Time and Location Date Performed: 06/15/24 Time Performed: 10:04 Patient Location: Obstetrics Vital Signs Most Recent Imported Vital Signs: Most Recent Vital Signs Temp Pulse Resp BP Pulse Ox 36.4 C L 78 16 115/76 98 06/15/24 11:55 06/15/24 11:55 06/15/24 11:55 06/15/24 11:55 06/15/24 11:55 Pain Score Most Recent Pain Score: Most Recent Pain Score Pain Level [Sacrum] 7 06/15/24 11:55 Pain Level 2 06/15/24 12:54 Assessment Mental Status: Awake (Alert & Oriented to Patient Baseline) Airway and Respiratory Function: Patent airway with normal (patient baseline) respiratory exam Cardiovascular Function: Hemodynamically Stable Hydration Status: Adequately Hydrated Nausea & Vomiting: No Nausea or Vomiting Pain: Pain is tolerable per patient Peripheral Nerve Block: Patient did not receive a nerve block Postoperative Comments:: Report from RN, patient denied any questions for anesthesia..
== END 2024-06-15 18:15 | disposition home or self-care (01) | DRG 806 ==
LOC: BCD 09:32 → OBS 09:32
PROVIDERS: Admitting Provider Advanced Practice Midwife; PCP Nurse Practitioner Family; Visit Provider Advanced Practice Midwife
DX: O13.4 Gestational [pregnancy-induced] hypertension without significant proteinuria, complicating childbirth (principal); O99.354 Diseases of the nervous system complicating childbirth; Z37.0 Single live birth; Z3A.38 38 weeks gestation of pregnancy; O99.344 Other mental disorders complicating childbirth; F32.A Depression, unspecified; O70.1 Second degree perineal laceration during delivery; O87.0 Superficial thrombophlebitis in the puerperium; I80.01 Phlebitis and thrombophlebitis of superficial vessels of right lower extremity; F41.9 Anxiety disorder, unspecified; O99.52 Diseases of the respiratory system complicating childbirth; O87.4 Varicose veins of lower extremity in the puerperium; O99.72 Diseases of the skin and subcutaneous tissue complicating childbirth; L30.9 Dermatitis, unspecified; G43.109 Migraine with aura, not intractable, without status migrainosus; O26.893 Other specified pregnancy related conditions, third trimester; Z67.91 Unspecified blood type, Rh negative; J45.909 Unspecified asthma, uncomplicated; K59.00 Constipation, unspecified; O99.62 Diseases of the digestive system complicating childbirth
CPT/HCPCS: 36415; 80053; 85027; 85461; 86850; 86900; 86901; 90384; 59200; 82565; 84156; J0665; J2300; J2405; J2790; J3010; J3490